=== PATIENT | female | born 1960 | race Caucasian/White ===

== ENCOUNTER 2023-01-08 11:16 | Observation (INO) ==
--- NOTE | 2022-12-24 14:45 | Anesthesiology Consultation ---
Date of Service December 24, 2022 Assessment & Plan (1) Encounter for pre-operative examination: Plan Chart Review Chart Review: Acceptable Risk for Surgery (pending surgeon ordered PCP clearance ) and Patient seen in Pre Admission Testing - Awaiting surgeon ordered PCP clearance Pt prefers [place] - will discuss with anesthesiologist DOS -Due to BMI- patient is not a good Same Day Joint candidate Per PAT appt on 12/24/22, patient denies any recent travel or large group activities. Works in [employer]- wears PPE. Pt is vaccinated for Covid. W ill leave to surgeon's discretion if preop Covid testing needed. Educated on importance of using Covid precautions one week prior to surgery Teaching & Discussion Pre-Anesthesia Teaching/Discussion Notes: Instructed NPO after midnight before surgery,except medications with 15 cc of water. Medication instructions provided according to the [facility] guidelines. History Surgery Operation Date: 01/08/23 10:15 Proposed Procedures p Left Total Knee Arthroplasty - Bhavin Lees MD Height/Weight Height: 5 ft Weight: 106.1 kg Allergies Allergy/AdvReac Type Severity Reaction Status Date / Time clindamycin Allergy Severe facial Verified 12/20/22 14:20 edema, redness Penicillins Allergy Severe Hives Verified 12/20/22 14:20 Medications Home Medications Medication Instructions Recorded Confirmed Last Taken celecoxib 200 mg capsule (Celebrex) 200 mg PO QAM 12/18/22 12/20/22 Unknown docusate sodium 100 mg capsule 100 mg PO QAM 12/18/22 12/20/22 Unknown (Colace) duloxetine 60 mg capsule,delayed 60 mg PO QAM 12/18/22 12/20/22 Unknown release (Cymbalta) ergocalciferol (vitamin D2) 1,250 1,250 mcg PO WK 12/18/22 12/20/22 Unknown mcg (50,000 unit) capsule (Vitamin D2) hydrocodone 5 mg-acetaminophen 325 1 tab PO BID PRN Pain 12/18/22 12/20/22 Unknown mg tablet olmesartan 40 1 tab PO QAM 12/18/22 12/20/22 Unknown mg-hydrochlorothiazide 25 mg tablet (Benicar HCT) pantoprazole 40 mg tablet,delayed 40 mg PO QAM 12/18/22 12/20/22 Unknown release (Protonix) tramadol 50 mg tablet 50 mg PO Q6H PRN Pain 12/18/22 12/20/22 Unknown Past Medical History Medical History (Updated 12/26/22 @ 08:51 by Tamia Chan PA-C) DJD (degenerative joint disease) GERD (gastroesophageal reflux disease) Well controlled and stable History of COVID-30 July 2022 -> cough, fever, fatigue, aches. all resolved Hypertension Leg numbness Right leg numbness s/p knee surgery --> following with [facility] Neurology Nausea and vomiting after administration of anesthetic agent Prediabetes Presumed- Hgb A1C 6.0 on 12/07/22 Sleep apnea Could not tolerate device (sleep study 10 years ago) Tremor Right thumb and right leg -- following with [facility] Neurology. had a brain MRI at [facility] recently. Exercise / Class Metabolic Activity II 4-5 Yardwork/Stairs/Walk up hill (one flight of stairs - no chest pain or SOB) Past Family History Family History Other No family history of adverse response to anesthesia Past Surgical History Surgical History History of bilateral tubal ligation History of section History of colonoscopy History of dilatation and curettage History of esophagogastroduodenoscopy (EGD) History of rectal surgery perianal abscess repair History of revision of total replacement of right knee joint (~2020) History of right knee joint replacement (~2015) [facility] Dr Sue Fisher Hx of laparoscopic gastric banding (~2018) S/P left knee arthroscopy Past Anesthesia History No Hx of Anesthesia Complications (with exception to PONV) and No Family Hx of Anesthesia Complications History of PONV No Hx of Motion Sickness and History of PONV (No issues with previous TKA - possibly given scop patch ) Social History Smoking Status: Never smoker Do You Dip or Chew Tobacco: No Hx Alcohol Use: No Hx Substance Use: No substance use type: does not use Review of Systems Patient denies chest pain, shortness of breath, dyspnea on exertion, cough, wheezing, palpitations. No hx of seizures, stroke, [place]. No hx of blood clots or blood transfusions Physical Exam Vital Signs VITALS BP 113/73 P 83 TEMP 97.9 SP02 95% RESP 16 Constitutional no acute distress ENMT Mouth: no TMJ clicking Thyromental Distance: < 3.5 Finger Breadths (3.0) Mallampati Class: III Missing molar Two permanent bridges to side teeth Neck neck extension not limited Respiratory normal respiratory effort; no respiratory distress Auscultation: lungs clear to auscultation bilaterally; no wheezes Cardiovascular Rate/Rhythm: regular rate and regular rhythm Heart Sounds: no murmur Vessels: no carotid bruit Musculoskeletal Spine: no pain with cervical ROM Extremities: extremities normal to inspection Psychiatric Orientation: alert Lab Results Anesthesia Preop Results Results Anesthesia Widget: PT 10.5 Seconds (9.0-12.0) 12/24/22 PTT 28.2 Seconds (21.0-31.0) 12/24/22 INR 1.0 (0.9-1.1) 12/24/22 Blood Type O Positive 12/24/22 Antibody Screen NEGATIVE 12/24/22 Testing Laboratory Results 12/07/22= WBC: 8.3 H/H: 13.5/41.4 PLATELETS: 314 SODIUM: 140 POTASSIUM: 4.7 CHLORIDE: 105 CO2: 31.0 BUN: 24 CREATININE: 1.1 GLUCOSE: 112 HGB A1C: 6.0 Electrocardiogram Date: 12/24/22 Sinus rhythm at 71bpm Low voltage QRS Chest X-Ray Date: 12/24/22 Findings: + NAD COVID-19 Risk Screen Screening Information COVID-19 Screen Date: 12/24/22 Exposure 21 Days Family/Household +COVID Last 21 Days: No Exposure 10 Days Any COVID Exposure Last 10 Days: No Symptoms Last 10 Days Experienced COVID Sx Last 10 Days: No + COVID 0-90 Days COVID + in Last 0-90 Days: No Risk Plan COVID Risk Plan: No Risk Identified Patient Education COVID Preop Screening Education Complete: Yes
[~2023-01-08 11:16] MED LIST: ACETAMINOPHEN 500 MG TAB PO SCH; BUPIVACAINE 0.5 % 5 MG/1 ML PF 10ML VIAL ONE; CeleBREX 200 MG CAP PO SCH; EPINEPHrine INJ 1 MG/ML AMP ONE; FAMOTIDINE 20 MG TAB PO SCH; GABAPENTIN 600 MG DOSE PO SCH; LR 15ML/HR IV SCH; LR 60ML/HR IV SCH; METOCLOPRAMIDE HCL 10 MG TABLET PO SCH; ROPIVACAINE 0.5% 5 MG/ML 30 ML VIAL ONE; ROPIVACAINE 0.5% HCL/PF 150 MG, BUPIVACAINE 0.75% MPF 20 ML, EPINEPHrine 0.15 MG, Ketor... INFIL SCH; TRANEXAMIC ACID 1,000 MG **IV Intra-op IV SCH; TRANEXAMIC ACID 1,000 MG **IV Pre-op IV SCH; ceFAZolin 2000MG 2,000 MG/15 ML SYR IV SCH; cloNIDine HCL 0.1 MG/24 HR TRANSDERM SYS TD SCH; dexAMETHasone 4 MG TAB PO SCH; oxyCODONE HCL 10 MG TABCR (OxyCONTIN) PO SCH; traMADol HCL 50 MG TABLET PO SCH
[2023-01-08] MEDS ORDERED: MIDAZOLAM HCL 1 MG/ML 2ML VIAL ONE ×2 (11:40)
[2023-01-08] MEDS ORDERED: PROPOFOL IV EMULSION 10 MG/ML 20 ML VIAL IV ONE (12:07)
--- NOTE | 2023-01-08 12:30 | History & Physical Bridge Note ---
Date of Service January 08, 2023 History & Physical Bridge Note I have examined the patient, reviewed the History & Physical and in the interval since the performance of the History & Physical I have noted the following changes of clinical significance: no changes noted
[2023-01-08] MEDS ORDERED: ORTHO JOINT ANESTHETIC ONE (13:10)
[2023-01-08] MEDS ORDERED: ePHEDrine sulfate 50 MG/ML SYR ONE (13:47)
[2023-01-08] MEDS ORDERED: ePHEDrine sulfate 50 MG/ML AMP IV PRN (14:34)
[2023-01-08] MEDS ORDERED: ATROPINE SULFATE 0.1 MG/ML 10ML SYR IV PRN (14:34)
--- NOTE | 2023-01-08 16:34 | Operative Report ---
Post Operative Report Pre & Post Diagnosis Operation Date: 01/08/23 13:05 Pre-Op Diagnosis: Left knee degenerative joint disease. Post-Op Diagnosis: Left knee degenerative joint disease. I identified the patient and participated in the time-out.: Yes Procedure Operation Date: 01/08/23 13:05 Actual Procedures p Left Total Knee Arthroplasty(Left) - Bhavin Lees MD Surgeon Bhavin Lees MD Director Of Women'S Services Maya Atkinson no resident or fellow available Estimated Blood Loss 10 Findings Consistent with Post-Op Diagnosis Specimens Resected bone and soft tissue Anesthesia Type MAC Spinal Regional Complications none Disposition Accompanied Patient To Recovery: No Disposition: Recovery Room Indications Eva is 62 and has end-stage arthritis of her left knee. She is status post a previous right knee replacement with tibial revision for loosening. She has undergone extensive nonoperative treatment for her left knee and wishes to have it replaced due to continued painful symptoms. Description of Procedure Informed consent obtained. Patient identified. She identified the operative site as the left knee. I marked with my initials. Preoperative surgical timeout performed. Preop dose of antibiotics was given. She was taken to the operating room and positioned supine on the operating room table. A bump was placed under the left hip. A padded post under the left calf. Tourniquet on the left thigh. Leg was prepped and draped in usual sterile fashion. DVT prophylaxis with foot pumps intraoperatively. Postop early ambulation mechanical devices and Lovenox. The exam under anesthesia revealed range of motion 0/5/115. 1+ MCL laxity in mid position. Limb exsanguinated with the Esmarch. Tourniquet inflated 275 mmHg. A midline longitudinal incision was made of about 20 cm in length followed by medial parapatellar arthrotomy. A medial release was performed in an extensile fashion around the posterior medial corner of the knee. The synovial reflection in the lateral gutter was released. The fat pad was resected. Soft tissue on the anterior aspect the distal femur was resected. The patella was everted and the knee was flexed. Significant osteophytes noted medially as well as within the notch and small osteophytes superior aspect of the patella. These were removed. There were grade 3 changes on the medial half of the patella and grade 1 or 2 changes on the lateral half of the patella. The patella itself was very small. It measured only 18 mm in thickness and was barely the size of a small this 32 mm paddle. The synovium around the patella was excised and based upon various factors including the size and thickness of the patella I elected to not proceed with patellar resurfacing. The cruciates were resected. The remnants of the meniscus medially were removed. The lateral compartment looked relatively normal. The tibia was subluxated. A fighter pilot hole was drilled into the proximal tibia just in front of and between the tibial spines. The intramedullary alignment vj was inserted. The 2 degree revision tibial tray cutting guide was applied aligned with the tibial tubercle and pinned in place. This cut was in slight varus. I double checked with the standard tibial tray. I then freehand adjusted the revision tibial tray elevating the medial aspect out of varus and read pending it. I then rechecked the alignment using the spacer block and alignment vj. The slope was slight posterior and the alignment was bisecting the ankle joint and intersecting the second ray. This cut was then made. The tibia was sized to a 2. Attention was turned to the femur where a fighter pilot hole was drilled into the distal femur followed by insertion of the distal femoral cutting guide. Because of her flexion contracture it was set to resect 14 mm at a 7 degree valgus angle based upon templating. Care was taken to make sure this was distal to the collateral ligaments which it was. This cut was then made and the extension gap was a symmetric 10. I then marked out the epicondylar axis and applied the distal femoral sizing guide. It sized to a 3. The largest femoral size I can apply is a 2.5. I then went ahead and half-size this pending it for 3 but using the 2.5 block which effectively takes half of the difference anterior and half of the distance posterior. I was careful to ensure that there was not significant anterior cortical notching. There was a little bit of feathering into the anterior cortex but no significant notching. The guide was pinned into place and the cuts were made. The box cutting guide was applied lateralized and the box cut was made. Posterior osteophytes particularly medially were removed. The size 2.5 femur was applied. The tibial tray was applied and appropriately positioned aligned with the tibial tubercle and lateralized. It was pinned into place and the keel was drilled and punched. Subsequently the revision tray was applied and the same alignment and the keel was punched. Because of her history of tibial loosening on the other side as well as her other factors I elected to proceed with a stemmed cemented tibial tray to provide increased stability. The size 10 block was inserted and it was a little bit lax laterally. I did some more releasing medially and I then had a symmetric 10 mm flexion and extension gap fitting the 12.5 mm block. These releases were done prior to implantation of the final component using the spacer blocks. I elected not to resurface the patella as mentioned previously. The bony surfaces were meticulously prepared with pulsatile lavage. The canals were plugged and Ortho joint mix injected into the back the knee. 2 bags of Simplex P cement were mixed and while in a doughy state the femur was cemented into place followed by the tibia. The upper two thirds of the tibial post were cemented into place. Trial spacer was applied the knee was held in full extension until cement hardened. Tourniquet was then let down after 125 minutes of inflation. Meticulous hemostasis performed. The remainder the Ortho joint mix was injected and meticulous hemostasis was performed. Irrigation done. Patellar tracking was fine with no hands technique. I then dislocated the knee and inspected the back of the knee for cement and bleeding. Some thin sheets of cement were removed medially and laterally. The tibial tray was fine. The final polyethylene implant was applied. Knee had full extension and intact stability. 1+ LCL laxity at 20 to 30 degrees knee flexion and trace LCL laxity at 90 degrees. Bonnie assisted flexion of the knee once the extensor mechanism closed was 115 degrees. The extensor mechanism was closed above the equator of the patella with interrupted #2 FiberWire. Below the equator the patella with running and interrupted #1 Vicryl. The skin was closed in layers with 0 and 2-0 Vicryl followed by ailyn on the skin. The leg was cleaned with wet and dry sponges and a bulky soft sterile dressing was applied Xeroform 4 x 4's ABD soft wrap Efrain wrap and a knee immobilizer. Tomorrow a Prevena wound VAC dressing will be applied. She was awakened from anesthesia without difficulty and taken to the cart room in stable condition. The resected bone and soft tissue were sent for specimen. There were no complications. Counts were correct and blood loss estimated to be 10 cc. At the conclusion the operation spoke to patient's informed him my findings and discussed the postoperative plan. She will rehabilitate according to the total knee protocol she may weight-bear as tolerated. Lovenox will begin morning after surgery. Components inserted with a J[employer] PFC Sigma rotating platform knee a size 2.5 x 12.5 mm thick mobile-bearing revision polyethylene. A 2.5 right posterior stabilized femur. No patella. A mobile-bearing revision tibial tray with a 30 mm cemented stem extension. I attest to the content of the Intraoperative Record and any orders documented therein. Any exceptions are noted below.
--- NOTE | 2023-01-08 17:13 | XRay Report ---
XR knee LT 1 or 2V routine CLINICAL HISTORY: Postoperative evaluation. COMPARISON: Leg length study December 24, 2022. FINDINGS: Alignment of the total left knee arthroplasty is anatomic. There is no periprosthetic frac ture. There is no unexpected radiopaque foreign bodies. IMPRESSION: Expected findings following total left knee arthroplasty. ACT 112: Negative or not required by law. Electronically signed by: Prem Monique M.D. 01/08/2023 5:12 PM
--- NOTE | 2023-01-08 17:31 | Anesthesiology Progress Note ---
Date of Service January 08, 2023 Anesthesia Post Procedure Vital Signs Vital Signs: Temp Pulse Pulse Resp BP BP Pulse Ox 01/08/23 17:05 78 14 109/70 100 01/08/23 16:55 79 15 111/63 100 01/08/23 17:15 81 13 122/61 91 01/08/23 16:45 79 15 110/63 100 01/08/23 16:35 79 19 111/63 100 01/08/23 16:25 97.9 F 84 15 116/70 99 01/08/23 11:56 97.9 F 91 H 20 131/79 97 O2 Del Method O2 Flow Rate 01/08/23 17:05 Oxymask 4 01/08/23 16:55 Oxymask 6 01/08/23 17:15 Room Air 01/08/23 16:45 Oxymask 10 01/08/23 16:35 Oxymask 10 01/08/23 16:25 Oxymask 10 01/08/23 11:56 Room Air Transfer of Care Handoff Completed per policy Notes Mental Status: alert / awake / arousable and participated in evaluation Patient Amnestic to Procedure: Yes Nausea / Vomiting: adequately controlled Pain: adequately controlled Airway Patency, RR, SpO2: stable & adequate BP & HR: stable & adequate Hydration State: stable & adequate Neuraxial Anesthesia: was administered and sensory block is resolving Anesthetic Complications: no major complications apparent and Pt Satisfied with anesthetic care
--- NOTE | 2023-01-08 18:01 | Operative Report ---
Post Operative Report Pre & Post Diagnosis Operation Date: 01/08/23 13:05 Pre-Op Diagnosis: Left knee degenerative joint disease. Post-Op Diagnosis: Left knee degenerative joint disease. I identified the patient and participated in the time-out.: Yes Procedure Operation Date: 01/08/23 13:05 Actual Procedures p Left Total Knee Arthroplasty(Left) - Bhavin Lees MD Surgeon Bhavin Lees M.D. Print Journalist Maya Atkinson no resident or fellow available Estimated Blood Loss 10 Findings Consistent with Post-Op Diagnosis DJD left knee Specimens Bone and soft tissue Anesthesia Type General Regional Description of Procedure Patient was taken to the operating room and placed under spinal anesthesia, with peripheral nerve block. Time out was performed. She was given 2 g of IV Ancef for surgical prophylaxis. She was prepped and draped in routine sterile fashion. Is present during the entire case. Please see Dr. Lees's operative report for further detail. Patient was awakened and transferred to the recovery room in stable condition. I attest to the content of the Intraoperative Record and any orders documented therein. Any exceptions are noted below.
[2023-01-08] MEDS ORDERED: ONDANSETRON INJ 2 MG/ML 2 ML VIAL IV PRN (18:04)
[2023-01-08] MEDS ORDERED: MAGNESIUM HYDROXIDE SUSP 30 ML UDC PO PRN (18:04)
[2023-01-08] MEDS ORDERED: traMADol HCL 50 MG TABLET PO PRN (18:04)
[2023-01-08] MEDS ORDERED: HYDROmorphone INJ 0.5 MG/0.5 ML SYR IV PRN (18:04)
[2023-01-08] MEDS ORDERED: bisacodyL 10 MG SUPP PR PRN (18:04)
[2023-01-08] MEDS ORDERED: NALOXONE HCL 0.4 MG/1 ML VIAL/CARP IV PRN (18:04)
[2023-01-08] MEDS ORDERED: SODIUM CHLORIDE 0.9% 1000ML 1,000 ML IV SCH (18:04)
[2023-01-08] MEDS: CHECK CLONIDINE PATCH PLACEMENT SCH ×3 (18:38→23:19)
--- NOTE | 2023-01-08 18:39 | Progress Notes ---
DATE OF SERVICE: 01/08/2023. She is resting comfortably in bed. Pain is well controlled. I discussed with her the findings relat jose a to her surgery. The x-rays reviewed and showed good positioning of the components and alignment without any complication. Her DP and PT pulses are 1+ palpable. She has intact sensation in the joe t with some tingling. Her motor strength is 5-/5 to ankle and toe plantarflexion, dorsiflexion and e version. Her dressing is clean and dry. I want overuse of the immobilizer with her, the pain contro l regimen and some simple exercises. We will begin to check on her in the morning. I talked about t he incisional wound VAC. Lovenox to start in the morning. She will have a routine course of postope rative IV antibiotics. She is afebrile. Her vital signs are stable, 94% sat on room air. Job ID: [id number]
[2023-01-08] MEDS: KETOROLAC TROMETHAMINE 15 MG/ML VIAL IV SCH ×2 (18:43→23:18)
[2023-01-08 19:49] LABS: Creatinine Clr Calc Pharmacy 51.3 ml/min; Est GFR (African American) 54.2 ml/min; Est GFR (Non-African American) 46.8 ml/min
[2023-01-08] MEDS ORDERED: SENNA 8.6 MG TAB PO SCH (21:00)
[2023-01-08] MEDS: CeleBREX 200 MG CAP PO SCH (21:05)
[2023-01-08] MEDS: ceFAZolin 2000MG 2,000 MG/15 ML SYR IV SCH (21:06)
[2023-01-08] MEDS: ACETAMINOPHEN 500 MG TAB PO SCH (21:06)
[2023-01-08] MEDS: DOCUSATE SODIUM 100 MG CAP PO SCH (21:06)
[2023-01-09] MEDS: oxyCODONE HCL IR 5 MG TAB (IMMEDIATE RELEASE) PO PRN ×2 (01:57→10:52)
[2023-01-09] MEDS: ACETAMINOPHEN 500 MG TAB PO SCH ×2 (06:10→15:06)
[2023-01-09] MEDS: KETOROLAC TROMETHAMINE 15 MG/ML VIAL IV SCH ×2 (06:11→12:48)
[2023-01-09] MEDS: ceFAZolin 2000MG 2,000 MG/15 ML SYR IV SCH (06:12)
[2023-01-09] MEDS ORDERED: dexAMETHasone 4 MG TAB PO SCH (08:00)
[2023-01-09 08:04] LABS: Hematocrit (blood only) 31.5 % (37.0-47.0); Hemoglobin 10.5 g/dl (12.0-16.0); Mean Corpuscular Hemoglobin 30.6 pg (25.0-34.0); Mean Corpuscular Hgb Conc 33.3 g/dL (32.0-36.0); Mean Corpuscular Volume 91.8 fL (80.0-100.0); Mean Platelet Volume 10.8 fL (9.4-12.4); Platelet Count 259 K/uL (130-400); RDW Coefficient of Variation 13.1 % (11.5-14.5); RDW Standard Deviation 44.3 fL (36.4-46.3); Red Blood Count 3.43 M/uL (4.20-5.40); White Blood Count 20.74 K/ul (4.8-10.8)
[2023-01-09 08:15] LABS: Calcium 8.5 mg/dl (8.5-10.1); Creatinine Clr Calc Pharmacy 41.7 ml/min; Est GFR (African American) 42.2 ml/min; Est GFR (Non-African American) 36.4 ml/min
[2023-01-09] MEDS: CHECK CLONIDINE PATCH PLACEMENT SCH (08:18)
[2023-01-09] MEDS: DOCUSATE SODIUM 100 MG CAP PO SCH (08:21)
[2023-01-09] MEDS: CeleBREX 200 MG CAP PO SCH (08:21)
[2023-01-09] MEDS ORDERED: LOSARTAN POTASSIUM 50 MG TAB PO SCH (09:00)
[2023-01-09] MEDS ORDERED: PANTOprazole 40 MG TAB PO SCH (09:00)
[2023-01-09] MEDS ORDERED: OLMESARTAN HYDROCHLOROTHIAZIDE PO SCH (09:00)
[2023-01-09] MEDS ORDERED: MULTIVITAMIN TAB PO SCH (09:00)
[2023-01-09] MEDS ORDERED: DULoxetine HCL 60 MG CAP PO SCH (09:00)
[2023-01-09] MEDS ORDERED: hydroCHLOROthiazide 25 MG TAB PO SCH (09:00)
[2023-01-09] MEDS ORDERED: ENOXAPARIN INJ 30 MG/0.3 ML SYR SQ SCH ×2 (09:30→21:00)
--- NOTE | 2023-01-09 10:09 | Discharge Summary ---
Date of Service January 09, 2023 Discharge Data Procedures Performed Operation Date: 01/08/23 13:05 Actual Procedures p Left Total Knee Arthroplasty(Left) - Bhavin Lees MD Hospital Course (1) S/P total knee arthroplasty: Patient was admitted to [facility] for observation after undergoing an elective left total knee arthroplasty by Dr. Lees on December 31, 2022. Her surgery was performed with spinal anesthesia with peripheral nerve block. She tolerated the procedure well without any intraoperative complications. She was given 2 g of IV Ancef for surgical prophylaxis which was continued for 24 hours after surgery. Postoperative x-rays were done in the recovery room which showed a stable prosthesis of her left knee. She was allowed out of bed, weightbearing as tolerated with the assistance of a walker and a knee immobilizer. Physical therapy and Occupational Therapy consults were placed for evaluation prior to discharge. Her home medications were resumed. She was started on Lovenox 30 mg twice daily on postoperative day 1 for DVT prophylaxis which will be continued for 2 to 4 weeks after surgery. She was provided pain medication after surgery which included Toradol, tramadol, oxycodone, IV Dilaudid and oral Tylenol. POD 1 CBC, Bmp performed and within normal limits. She tolerated a regular diet during her inpatient stay. Her pain was well controlled. On postoperative day 1 her surgical dressing was removed and a Prevena incisional wound VAC was applied. This will remain on for 7 days. She was deemed safe for discharge to her home with the physical therapist and occupational therapist. Case management was involved for disposition needs. She was discharged to her home in stable condition with home health services on January 09, 2023. Discharge instructions were provided. All questions were answered.
--- NOTE | 2023-01-09 12:16 | Progress Notes ---
DATE OF SERVICE: 01/09/2023. Eva is resting comfortably in bed. She denies any kind of chest pains. She does report a little bit of shortness of breath when she is doing therapy, but nothing at rest. Her pain is well controll ed. She is afebrile. Her vital signs are stable. Her last temperature was 36.8, pulse 96, BP 106/63, sa t 96% on room air. White count is 20,000, likely secondary to surgical stress. Hemoglobin 11, hematocrit 32, platelets are 259. Her PRP shows a sodium of 134, BUN and creatinine of 130 and 1.50, respectively, slightly e levated compared to previous. Oral fluid intake is encouraged. Her dressing was pulled down from the top and the upper portion of her surgical excision is exposed. She has some bruising where her tourniquet was applied. The knee incision shows a scant bit of bloo dy drainage, nothing active. There is no significant swelling within the knee and no significant hem atoma. Calf is soft and supple. DP pulse is 1+, PT pulse is nonpalpable, but positive Doppler. She reports a slight bit of tingling in her toes and on the bottom of her foot, but otherwise normal sen sation throughout the leg and top of the foot. She has 5/5 ankle and toe plantar flexion, dorsiflexi on and eversion. She is able to do a straight leg raise with minimal lag. She did report getting up and having a buckling sensation in her left knee. She was wearing a knee i mmobilizer and I recommend that she continue to wear the knee immobilizer when she is up and walking until this buckling feeling goes away. I checked her MCL and it is intact. Also, she is able to do a straight leg raise. Her pain is well controlled. OT note indicates that she is satisfactory for discharge. We will chec k on the PT note, when it is completed. If she is ready, we will discharge her home today. She will follow up with me in 2 weeks. She will have home therapy and home nursing. We will check a PRP wit h the next blood draw and also a CBC. She has requested some Flexeril for muscle spasms. Actually, she requested baclofen, but I would recommend that we try Flexeril 10 mg p.o. q.8 hours as needed for muscle spasms. Importance of activity modifications, rest and elevation is discussed. We talked ab out things such as wound drainage and bathing. Pain medication, oxycodone, Ultram and Tylenol. If t here are any problems with breathing, swelling, redness, drainage, we need to know about it. Her dressing was changed. An incisional wound VAC was applied. Deployed without incident. Job ID: [id number]
== END 2023-01-09 16:05 | disposition home health service (06) ==
LOC: 3N 11:16 → ASU 11:16